=== PATIENT | male | born 1975 | race Caucasian/White ===

== ENCOUNTER 2018-01-07 16:48 | Emergency (ER) | payer SELFPAY ==
[~2018-01-07] VITALS: Ht 175.3 cm; Wt 98.0 kg
[2018-01-07 17:04] VITALS: BP 127/91; Ht 175.3 cm; Wt 98.0 kg
== END 2018-01-07 19:30 | disposition home or self-care (01) ==
LOC: ED 16:48
DX: S90.121A Contusion of right lesser toe(s) without damage to nail, initial encounter (principal); W51.XXXA Accidental striking against or bumped into by another person, initial encounter; Y93.84 Activity, sleeping; Y92.89 Other specified places as the place of occurrence of the external cause; Y99.8 Other external cause status

== ENCOUNTER 2018-06-19 09:47 | Emergency (ER) | payer OTHER ==
[~2018-06-19] VITALS: Ht 175.3 cm; Wt 97.1 kg
[2018-06-19 09:52] VITALS: BP 127/84; Ht 175.3 cm; Wt 97.1 kg
== END 2018-06-19 10:35 | disposition home or self-care (01) ==
LOC: ED 09:47
DX: S39.012A Strain of muscle, fascia and tendon of lower back, initial encounter (principal); M54.6 Pain in thoracic spine; V48.6XXA Car passenger injured in noncollision transport accident in traffic accident, initial encounter; Y93.89 Activity, other specified; Y92.488 Other paved roadways as the place of occurrence of the external cause; Y99.8 Other external cause status
CPT/HCPCS: J1885

== ENCOUNTER 2018-12-17 10:11 | Emergency (ER) | payer OTHER ==
[~2018-12-17] VITALS: Ht 172.7 cm; Wt 99.3 kg
[2018-12-17 10:16] VITALS: Ht 172.7 cm; Wt 99.3 kg
[2018-12-17 14:19] LABS: microscopic required? NO
[2018-12-17 14:25] LABS: urine erythrocyte NEGATIVE (NEGATIVE)
[2018-12-17 17:34] VITALS: BP 125/76
== END 2018-12-17 17:34 | disposition home or self-care (01) ==
LOC: ED 10:11
PROVIDERS: Emergency Medicine
DX: S20.20XA Contusion of thorax, unspecified, initial encounter (principal); F12.11 Cannabis abuse, in remission; V49.59XA Passenger injured in collision with other motor vehicles in traffic accident, initial encounter; Y93.89 Activity, other specified; Y92.413 State road as the place of occurrence of the external cause; Y99.8 Other external cause status
CPT/HCPCS: J1100; J1885

== ENCOUNTER 2019-01-28 04:26 | Emergency (ER) | payer OTHER ==
[~2019-01-28] VITALS: Ht 175.3 cm; Wt 100.4 kg
[2019-01-28 04:31] VITALS: Ht 175.3 cm; Wt 100.4 kg
[2019-01-28 06:24] VITALS: BP 137/94
== END 2019-01-28 06:24 | disposition home or self-care (01) ==
LOC: ED 04:26
DX: J11.1 Influenza due to unidentified influenza virus with other respiratory manifestations (principal)
CPT/HCPCS: 87804

== ENCOUNTER 2019-11-14 17:21 | Emergency (ER) | payer OTHER ==
[~2019-11-14] VITALS: Ht 175.3 cm; Wt 95.3 kg
[2019-11-14 17:45] VITALS: Ht 175.3 cm; Wt 95.3 kg
[2019-11-14 18:51] VITALS: BP 134/80
== END 2019-11-14 18:51 | disposition home or self-care (01) ==
LOC: ED 17:21
DX: S63.601A Unspecified sprain of right thumb, initial encounter (principal); W22.8XXA Striking against or struck by other objects, initial encounter; Y93.89 Activity, other specified; Y92.89 Other specified places as the place of occurrence of the external cause; Y99.8 Other external cause status
CPT/HCPCS: A4570; Q0092